=== PATIENT | female | born 1935 | race American Indian/Alaskan Native ===

== ENCOUNTER 2018-07-26 19:48 | Inpatient (IN) | payer MEDICARE ==
[2018-07-26 19:58] VITALS: BMI 32.9
--- NOTE | 2018-07-26 20:41 | ED PDOC ---
Arrival/HPI - General Chief Complaint: Palpitations Time Seen by Provider: 07/26/18 20:15 Historian: Patient - History of Present Illness Narrative History of Present Illness (Text): 07/26/18 20:15 82 year old female, whose past medical history includes hypertension, valvular heart disease, on Aspirin and Lasix, presents to the emergency department from home for complaints of reported palpitations, "feeling her heart racing fast", and feeling lightheaded that began 3 hours ago this evening. Patient reports she was hospitalized at another institution, but is unclear about the workup. Patient is a poor historian. She reports she took her aspirin today. Patient denies any pain or pressure on chest. Patient denies any fever, chills, chest pain, shortness of breath, nausea, vomiting, diarrhea, urinary symptoms, back pain, neck pain, headache, or any other complaints. 07/26/18 23:59 Time/Duration: Other (3 hours ago) Symptom Onset: Gradual Symptom Course: Unchanged Activities at Onset: Light Context: Home Past Medical History - Provider Review Nursing Documentation Reviewed: Yes - Cardiac Hx Hypertension: Yes - Pulmonary Hx Respiratory Disorders: No - Neurological Hx Neurological Disorder: No - HEENT Hx HEENT Disorder: No - Renal Hx Renal Disorder: No - Endocrine/Metabolic Hx Endocrine Disorders: No - Hematological/Oncological Hx Blood Disorders: No - Integumentary Hx Dermatological Disorder: No - Musculoskeletal/Rheumatological Hx Musculoskeletal Disorders: No - Gastrointestinal Hx Gastrointestinal Disorders: No - Genitourinary/Gynecological Hx Genitourinary Disorders: No - Psychiatric Hx Psychophysiologic Disorder: No Hx Substance Use: No - Surgical History Other/Comment: Uterine Polyp removal - Anesthesia Hx Anesthesia: No Family/Social History - Physician Review Nursing Documentation Reviewed: Yes Family/Social History: No Known Family HX Smoking Status: Never Smoked Hx Alcohol Use: No Hx Substance Use: No Allergies/Home Meds Allergies/Adverse Reactions: Allergies No Known Allergies Allergy (Verified 07/26/18 19:58) Review of Systems - Physician Review All systems were reviewed & negative as marked: Yes - Review of Systems Constitutional: absent: Fevers, Other (chills) Respiratory: absent: SOB Cardiovascular: Palpitations. absent: Chest Pain (or pressire) Gastrointestinal: absent: Diarrhea, Nausea, Vomiting Genitourinary Female: absent: Dysuria, Frequency, Hematuria Musculoskeletal: absent: Back Pain, Neck Pain Neurological: Other (lightheadedness). absent: Headache Physical Exam Vital Signs Reviewed: Yes Vital Signs Temp Pulse Resp BP Pulse Ox 07/26/18 20:04 97.7 F 90 18 140/72 97 07/26/18 19:48 97.7 F 90 17 140/72 97 Temperature: Afebrile Blood Pressure: Normal Pulse: Regular Respiratory Rate: Normal Appearance: Positive for: Well-Appearing, Non-Toxic, Comfortable Pain Distress: None Mental Status: Positive for: Alert and Oriented X 3 - Systems Exam Head: Present: Atraumatic, Normocephalic Pupils: Present: PERRL Extroacular Muscles: Present: EOMI Conjunctiva: Present: Normal Mouth: Present: Moist Mucous Membranes Neck: Present: Normal Range of Motion Respiratory/Chest: Present: Clear to Auscultation, Good Air Exchange. No: Respiratory Distress, Accessory Muscle Use Cardiovascular: Present: Regular Rate and Rhythm, Normal S1, S2. No: Murmurs Abdomen: No: Tenderness, Distention, Peritoneal Signs Back: Present: Normal Inspection Upper Extremity: Present: Normal Inspection. No: Cyanosis, Edema Lower Extremity: Present: Normal Inspection. No: Edema Neurological: Present: GCS=15, CN II-XII Intact, Speech Normal Skin: Present: Warm, Dry, Normal Color. No: Rashes Psychiatric: Present: Alert, Oriented x 3, Normal Insight, Normal Concentration Medical Decision Making ED Course and Treatment: 07/26/18 20:00 Impression: 82 year old female presents complaining of reported palpitations, "feeling her heart is racing fast", and lightheadedness/near syncope that began 3 hours ago this evening. neuro intact no capps in er. Plan: -- EKG -- Labs -- Chest X-ray -- Urinalysis -- Chest CT Angio -- Reassess and disposition Progress Notes: EKG shows Sinus Tachycardia at 111 BPM with PVCs. Interpreted by me. 07/26/18 22:19 CXR Impression: As read by me, negative. EXAM: CTA Chest with Intravenous Contrast Electronically signed on Jul 26, 2018 11:16:10 PM EST by: Domingo Rojo M.D. IMPRESSION: 1. No identification of PE. 2. Mild cardiomegaly. 3. Incidental discovery of several tiny choleliths within the gallbladder. 4. Multilevel degenerative disc disease within the lower thoracic and upper lumbar spine. 07/26/18 23:[address] Goff who is aware and agrees with the plan. Accepts patient into her service. 07/26/18 23:59 labs neg. cta neg.pt with symptoms < 6 hours onset with need serial trop. - Lab Interpretations I have reviewed the lab results: Yes - RAD Interpretation Radiology Orders: 07/26/18 20:23 CHEST PORTABLE [RAD] Stat Cardiac Cath Technologist: ED Physician - EKG Interpretation Interpreted by ED Physician: Yes Type: 12 lead EKG - Scribe Statement The provider has reviewed the documentation as recorded by the Faye Wilson Provider Scribe Attestation: All medical record entries made by the Faye were at my direction and personally dictated by me. I have reviewed the chart and agree that the record accurately reflects my personal performance of the history, physical exam, medical decision making, and the department course for this patient. I have also personally directed, reviewed, and agree with the discharge instructions and disposition. Disposition/Present on Arrival - Present on Arrival Any Indicators Present on Arrival: No History of DVT/PE: No History of Uncontrolled Diabetes: No Urinary Catheter: No History of Decub. Ulcer: No History Surgical Site Infection Following: None - Disposition Have Diagnosis and Disposition been Completed?: Yes Diagnosis: Near syncope, Palpitations Disposition: HOSPITALIZED Disposition Time: 22:00 Condition: STABLE
[2018-07-26 20:56] LABS: BASO # 0.03 K/mm3 (0.0-2.0); BASO % 0.5 % (0.0-3.0); EOS # 0.1 (0.0-0.7); EOS % 1.7 % (1.5-5.0); HEMOGLOBIN 13.7 g/dL (12.0-16.0); LYMPH # 2.5 (1.2-3.4); LYMPH % 41.1 % (22.0-35.0); MEAN CELL VOLUME 82.8 fl (80.0-105.0); MEAN CORPUSCULAR HEMOGLOBIN 27.5 pg (25.0-35.0); MEAN CORPUSCULAR HGB CONC 33.2 g/dl (31.0-37.0); MEAN PLATELET VOLUME 10.1 fl (7.0-11.0); MONO # 0.5 (0.1-0.6); MONO % 7.9 % (1.0-6.0); RBC 4.99 10^6/uL (3.5-6.1); RED CELL DISTRIBUTION WIDTH 14.9 % (11.5-14.5); WHITE BLOOD COUNT 6.1 10^3/uL (4.5-11.0)
[2018-07-26 21:04] LABS: INR 1.16; PARTIAL THROMBOPLASTIN TIME 32.7 Seconds (26.9-38.3); PROTHROMBIN TIME 12.9 SECONDS (9.4-12.5)
[2018-07-26 21:05] LABS: BLOOD UREA NITROGEN 27 mg/dL (7-21); CALCIUM 9.6 mg/dL (8.4-10.5); GFR NON-AFRICAN AMERICAN 48
[2018-07-26 21:05] LABS: PH,URINE 6.5 (4.7-8.0); URINE BILIRUBIN NEGATIVE (NEGATIVE); URINE BLOOD NEGATIVE (NEGATIVE); URINE GLUCOSE (UA) NEGATIVE (NEGATIVE); URINE LEUKOCYTE ESTERASE TRACE Leu/uL (NEGATIVE); URINE PROTEIN NEGATIVE mg/dL (<30 mg/dL); URINE UROBILINOGEN 0.2 E.U./dL (<1 E.U./dL)
[2018-07-26 21:10] LABS: ALB/GLOB RATIO 1.1 (1.1-1.8); ALBUMIN 4.2 g/dL (3.0-4.8); ALT/SGPT 14 U/L (7-56); AST/SGOT 32 U/L (14-36)
[2018-07-26 21:13] LABS: URINE APPEARANCE CLEAR (CLEAR); URINE COLOR YELLOW (YELLOW)
[2018-07-26 21:16] LABS: B-TYPE NATRIURETIC PEPTIDE 197 pg/mL (0-450)
[2018-07-26 21:21] LABS: TROPONIN I < 0.01 ng/mL
[2018-07-26] MEDS ORDERED: Iohexol 350 MG/100 ML VIAL ONE (21:27)
[2018-07-27 10:18] LABS: TROPONIN I < 0.01 ng/mL
--- NOTE | 2018-07-27 10:21 | RAD ---
Date of service: 07/26/2018 HISTORY: cp COMPARISON: In conjunction with this study was read in conjunction with CTA chest obtained 2 hr later FINDINGS: LUNGS: No active pulmonary disease. PLEURA: No significant pleural effusion identified, no pneumothorax apparent. CARDIOVASCULAR: Mild aortic atherosclerotic calcification present. Cardiomegaly. No pulmonary vascular congestion. OSSEOUS STRUCTURES: No significant abnormalities. VISUALIZED UPPER ABDOMEN: Suspect small hiatal hernia OTHER FINDINGS: None. IMPRESSION: Cardiomegaly. No acute cardiopulmonary disease.
--- NOTE | 2018-07-27 11:26 | CT ---
Date of service: 07/26/2018 PROCEDURE: CT Chest with contrast (Pulmonary Angiogram) HISTORY: Palpitations and SOB. COMPARISON: None available. TECHNIQUE: Axial computed tomography images were obtained of the chest in the pulmonary arterial phase of enhancement. Coronal and sagittal reformatted images were created and reviewed. Intravenous contrast dose: Radiation dose: Total exam DLP = 399.37 mGy-cm. This CT exam was performed using one or more of the following dose reduction techniques: Automated exposure control, adjustment of the mA and/or kV according to patient size, and/or use of iterative reconstruction technique. FINDINGS: PULMONARY ARTERIES: Visualized pulmonary trunk, right and left main, lobar, segmental and proximal subsegmental branches of the pulmonary arteries are well opacified with no definitive filling defects seen to suggest acute central pulmonary embolus. Pulmonary trunk measures approximately 3.25 cm.. Questionable small amount of air within the and anterior margin of the pulmonary trunk likely due to intravenous injection.. AORTA: No acute findings. No thoracic aortic aneurysm. Ascending thoracic aorta measures approximately 3.5 cm and descending thoracic aorta measures approximately 2.4 cm. Minor aortic atherosclerotic calcification or mural plaque present. LUNGS: Minor biapical pleural thickening with nodular parenchymal scarring right lung apex. Minimal linear scarring left lung apex. Underlying centrilobular emphysematous changes are present upper lobe predominance.. There is mild nodular scarring changes in the left lingular region which appears to be associated with some small 1 or 2 tiny calcifications PLEURAL SPACES: Unremarkable. No effusion or pneumothorax. HEART: Heart is enlarged. No significant pericardial effusion.. LYMPH NODES: No significant mediastinal or hilar lymphadenopathy.. Trachea midline and patent with no large central endoluminal lesions. Small to medium size hiatal hernia with slight wall thickening of the distal esophagus likely due to protrusion gastric mucosa.. BONES, CHEST WALL: Multilevel degenerative spondylosis predominately affecting the lower thoracic levels and upper lumbar levels. No acute compression fractures nor retropulsed fragments. OTHER FINDINGS: Note made of an approximately 11 mm low-attenuation adrenal lesion possibly representing an adenoma. Slightly nodular enlargement right adrenal gland noted as well. Colonic diverticula seen along the hepatic flexure region. Gallbladder is physiologically distended with intraluminal calculi. The pancreas appears atrophic and fatty replaced. IMPRESSION: No evidence of acute central pulmonary embolus. Cardiomegaly. Minor biapical pleural thickening with nodular parenchymal scarring right lung apex. Minimal linear scarring left lung apex. Underlying centrilobular emphysematous changes are present upper lobe predominance.. There is mild nodular scarring changes in the left lingular region which appears to be associated with some small 1 or 2 tiny calcifications Probable of left adrenal adenoma. Slight nodular enlargement right adrenal gland. Follow-up studies at interval could be performed to assess stability. Diverticulosis without radiographic evidence of acute diverticulitis. Cholelithiasis. Note that this report was placed in PA review folder for follow up
--- NOTE | 2018-07-27 20:15 | CARD ---
APPROVED REPORT Date of service: 07/26/2018 EKG Measurement Heart [id number] <Conclusion> Sinus tachycardia with premature supraventricular complexes with frequent and consecutive premature ventricular complexes in Possible Left atrial enlargement Left ventricular hypertrophy Abnormal ECG
--- NOTE | 2018-07-27 22:17 | CARD ---
APPROVED REPORT Date of service: 07/27/2018 EXAM: Two-dimensional and M-mode echocardiogram with Doppler and color Doppler. INDICATION PALPS 2D DIMENSIONS Left Atrium (2D)3.5 (1.6-4.0cm)IVSd0.9 (0.7-1.1cm) LVDd4.6 (3.9-5.9cm)PWd1.1 (0.7-1.1cm) LVDs3.7 (2.5-4.0cm)FS (%) 20.3 % LVEF (%)41.5 (>50%) M-Mode DIMENSIONS Aortic Root3.10 (2.2-3.7cm)Aortic Cusp Exc.2.10 (1.5-2.0cm) Aortic Valve AoV Peak Epivqejc965.0cm/Rboin Peak GR.7mmHg Mitral Valve MV E Syadcqnk02.9cm/sMV A Gwzlqvbp15.1cm/sE/A ratio0.7 TDI Lateral E' Peak V5.75cm/sMedial E' Peak V4.58cm/sE/Lateral E'7.6 E/Medial E'9.6 Tricuspid Valve TR Peak Enokmure304in/sRAP [id number] Peak Gr.32mmHg [id number] LEFT VENTRICLE The left ventricle is normal size. There is normal left ventricular wall thickness. The left ventricular function is normal. The left ventricular ejection fraction is within the normal range. There is normal LV segmental wall motion. RIGHT VENTRICLE The right ventricle is normal size. The right ventricular systolic function is normal. ATRIA The left atrium size is normal. The right atrium size is normal. The interatrial septum is intact with no evidence for an atrial septal defect. AORTIC VALVE The aortic valve is normal in structure. No aortic regurgitation is present. There is no aortic valvular stenosis. MITRAL VALVE The mitral valve is normal in structure. There is no mitral valve regurgitation noted. TRICUSPID VALVE The tricuspid valve is normal in structure. There is mild tricuspid regurgitation. PULMONIC VALVE The pulmonary valve is normal in structure. GREAT VESSELS The aortic root is normal in size. The IVC is normal in size and collapses >50% with inspiration. PERICARDIAL EFFUSION There is no pleural effusion. There is no pericardial effusion. <Conclusion> Normal study.
[2018-07-28] MEDS: POLYETHYLENE GLYCOL 3350 17 GM/Dose PACKET PO SCH ×2 (13:13→18:49)
--- NOTE | 2018-07-28 15:23 | PN ---
DATE: 07/28/2018 SUBJECTIVE: This 82-year-old female was examined at her bedside on the cardiac cisneros at the [facility] on the morning on 07/28/2018. The patient did complete a cardiac echocardiogram yesterday which I reviewed with the patient. The left ventricle was noted to be normal in size with normal wall thickness and normal wall function. Her ejection fraction was within normal range and there was normal left ventricular segmental wall motion. The right ventricle also was normal in size and her ventricular systolic function was noted to be normal. Left atrium size was normal. Her left atrial septum was intact. There was no evidence of an atrial septal defect. Her aortic valve was normal in structure. No aortic valvular stenosis was noted. The mitral valve was normal in structure. There was no mitral valve regurgitation noted. Tricuspid valve was normal. There was mild tricuspid regurgitation, and her pulmonary valve within normal limits. There was no evidence of pleural effusion nor pericardial effusion and the conclusion was a normal study. I did review the patient's vital signs throughout her hospital course, there have been no reports of tachycardia and the patient denies any active chest pain. PHYSICAL EXAMINATION: VITAL SIGNS: At the present time, her temperature is 98.4, respirations 20, pulse 78, blood pressure 126/72 with a pulse ox of 97% on room air. HEENT: Head normocephalic, atraumatic. Eyes: No icterus. Ears: Clear. Throat: Noninjected. NECK: Supple. HEART: S1, S2. LUNGS: Clear. ABDOMEN: Soft. EXTREMITIES: No edema. SKIN: Without rash. NEUROLOGIC: Intact. PSYCHOLOGIC: Alert. VASCULAR: Legs warm to touch. IMPRESSION: An 82-year-old female admitted with palpitations, tachycardia, history of obesity, hypertension. PLAN: The plan is to continue aspirin, Lasix and Zestril. I will add metoprolol tartrate 12.5 mg p.o. b.i.d. and lower her Zestril to 2.5 mg p.o. daily while watching her blood pressure and pulse rate response. I have discussed with the patient considering doing a Lexiscan stress test in the a.m., and based on her response, additional diagnostic workup and testing will be entertained. Greater than 35 minutes was spent in the care management, review of labs, orders and x-rays and discussion of this patient with herself and nursing. All questions were answered. Allie Santiago MD
--- NOTE | 2018-07-28 15:34 | HP ---
DATE OF EXAM: 07/27/2018 HISTORY OF PRESENT ILLNESS: This 82-year-old female was examined on the cardiac cisneros at the [facility] on the afternoon of Sunday, July 27, 2018. Present for this interview were family members including her sister, niece, nephew and case was reviewed in detail with her nurse, Michelle Olivier, registered nurse. 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 She presented to the [facility] ER last night and was seen by Dr. Dann Arredondo, who noted that the patient complained of palpitations. She felt as if her heart was racing to fast "lightheadedness" and the patient was admitted for further evaluation of the above. OUTPATIENT MEDICATIONS: Include, At[place]and, Lasix and baby aspirin. ALLERGIES: THE PATIENT DENIED ANY ALLERGIES TO MEDICATION. SOCIAL HISTORY: She states she is a nondrinker, nonsmoker and non IV drug misuser. FAMILY HISTORY: Noncontributory. REVIEW OF SYSTEMS: CONSTITUTIONAL: No fever, no chills. HEAD: No headache or seizure. EYE: No change in visual acuity. EAR: No hearing loss. THROAT: No swallowing difficulty. NECK: No stiffness. CARDIAC: No knowledge of valvular heart disease or myocardial infarction in her past. PULMONARY: No cough. No hemoptysis. GI: No hematemesis. No melena. : No dysuria. SKIN: No rash. VASCULAR: No claudication. PSYCHOLOGICAL: Alert and oriented x3. PHYSICAL EXAMINATION VITAL SIGNS: She was in normal sinus rhythm on hospital monitor with a temperature of 98.6, respirations 18, pulse 56 and blood pressure 138/62. Pulse ox 97% room air. HEENT: Head normocephalic and atraumatic. Eyes no icterus. Ears clear. Throat noninjected. NECK: Supple. HEART: Regular S1 and S2. No pathological rubs, murmurs or gallops. LUNGS: Clear. ABDOMEN: Soft. EXTREMITIES: No edema. SKIN: Without rash. NEUROLOGICAL: Intact. PSYCHOLOGICAL: Alert and oriented x3. VASCULAR: Legs warm to touch. BMI 33.4. LABORATORY DATA: White count 6100, hemoglobin 13.7, hematocrit 41.3, and platelets 232,000. PT/INR 1.16 and PTT 32.7. Sodium 136, K 4.1, chloride 101, bicarb 26, BUN 27, creatinine 1.1, random blood sugar 91, calcium 9.6, magnesium 1.8, bilirubin 0.6, AST 32, ALT 14 and alk phos 78. CPK #1 is 78 with a troponin less than 0.01. CPK #2 is 60 with a troponin less than 0.01. Urinalysis showed no bacteria. Chest x-ray was reviewed. It showed no active pulmonary disease. There was no pneumothorax, no pleural effusion, no infiltrate, no congestive heart failure. EKG was reviewed. It showed sinus tachycardia with PACs and nonspecific ST-T wave changes. Chest CT was reviewed. It showed cardiomegaly, no pericardial effusion, no mediastinal or hilar lymphadenopathy. She does have a hiatal hernia, gallstones and fatty pancreas. No evidence of pulmonary embolism. A probable left adrenal adenoma diverticulosis and no evidence of pulmonary consolidation. IMPRESSION: This is an 82-year-old female admitted with chest pain, palpitation, rule out cardiac arrhythmia, comorbidities of hypertension, obesity and adrenal adenoma. PLAN: As discussed with the patient and her family at bedside will be to order an echocardiogram. She will be continued on baby aspirin, Lasix and Zestril. She is ordered to have a heart-healthy diet. Based on clinical progress, additional diagnostic workup will be entertained. Greater than 75 minutes was spent in the care management, review of labs, orders and x-rays and discussion of this patient with herself, her family at the bedside and nurse Soy, registered nurse. All questions were answered. Allie Santiago MD
[2018-07-28] MEDS ORDERED: POLYETHYLENE GLYCOL 3350 17 GM/Dose PACKET PO PRN (18:50)
[2018-07-29] MEDS ORDERED: Aminophylline 25 mg/ml Inj ONE (09:40)
--- NOTE | 2018-07-29 20:12 | CARD ---
APPROVED REPORT Date of service: 07/29/2018 Protocol: LEXISCAN Test Type: Lexiscan Sestamibi Stress Test Attending Physician: Dr. Gallo Martinez Referring Physician: Dr. Allie Santiago Test Indications: Chest Pain Height:5 ft 2 in Weight:182lbs Medications: ASpirin, Lasix, Zestril, Lopressor Miralaz, Medical History: 82 year old female with a history of HTN, Valvular disease Target HR: 139 bpm Resting ECG: abnormal Resting Heart Rate: 56 bpm Resting Blood Pressure: 120/68mmHg Submaximum (85%): 118 bpm PROCEDURE Pharmacologic stress testing was performed using 0.4mg per 5ml of regadenoson given intravenously over 7-10 seconds. POST EXERCISE Reason for Termination: Protocol completed Target HR: No Max HR: 88 bpm 71% of Maximum Predicted HR: 139 bpm Exercise duration: 04:32 min:sec, 0 Stage Exercise capacity: 1.0METs Max Blood Pressure: 122/60mmHg Blood Pressure response to exercise: normal resting BP - appropriate response Heart Rate response to exercise: appropriate Chest Pain: No, none Angina index: 0 Arrhythmia: Yes, atrial premature beats ST Change: No, none Deviation: 0 mm TEST SUMMARY [id number]/68.0. INFUSIONDOSE 101:[id number]/.0. INFUSIONDOSE 201:000.00.01.093/.0. INFUSIONDOSE 301:[id number]/60.0. INFUSIONDOSE 401:[id number]/60.0. INFUSIONDOSE 500:320.00.01.088/.1. INTERPRETATION Stress EKG Conclusion: Normal infusion phase of Lexiscan NST. Signed by Gallo Martinez Electronically Approved: 07/29/2018 13:29:46 EXAM: Myocardial Perfusion REST/STRESS Stress Test Type: Pharmacologic Imaging Protocol The imaging protocol used to acquire images was Rest Tc-99m/stress Tc-99m 1 day Rest Spect myocardial perfusion imaging was performed in supine position 30 minutes following the injection of 10.4 mCi of Tc-99 Myoview. At peak stress, the patient was injected intravenously with 30.6mCi of Tc-99 tetrofosmin after an infusion time of minutes and seconds. Gated Stress Spect was performed 60 minutes after intravenous Tc-99 Myoview injection. The images were gated to evaluate regional wall motion and calculate ventricular ejection fraction.Images were reconstructed using backfilter projection method in short horizontal and verticle long axis. Spect slices were generated. LV Perfusion The quality of the study is good. The left ventricle is normal in size. The right ventricle is unremarkable. The lung uptake is normal. The distribution of tracer reveals moderately decreased perfusion involving apical and basal lateral nagy on the stress study. The remainder of the LV myocardium is unremarkable. The rest myocardial perfusion study shows partial improvement of the defects. Wall Motion Wall motion study shows inferolateral hypokinesis and paradoxical septal wall motion. LVEF = 48 %. Conclusion 1. Abnormal SPECT myocardial perfusion study. 2. Reversible, apical defect and artially reverislble, basal lateral defects are suggesive of ischemia. 3. Borderline normal LV function despite inferolateral hypokinesis and paradoxical septal wall motion. .
--- NOTE | 2018-07-29 21:53 | PN ---
DATE: 07/29/2018 SUBJECTIVE: This 82-year-old female remains hospitalized on the morning of 07/29/2018. She was admitted with palpitations, history of hypertension, obesity and degenerative arthritis. At present, her medications have been adjusted to low-dose Zestril, low-dose Lopressor, oral Lasix and p.o. baby aspirin. She has been given MiraLax for complaints of obstipation and is in the process of obtaining a Lexiscan stress test this morning. She remains in a normal sinus rhythm on the awake overnight monitor and denies any fever, chills or palpitations. PHYSICAL EXAMINATION: VITAL SIGNS: Her temperature was 98.4, respirations 20, pulse 84 and blood pressure 120/68. HEENT: Head: Normocephalic, atraumatic. Eyes: No icterus. Ears: Clear. Throat: Noninjected. NECK: Supple. HEART: Regular. S1, S2. No pathological rubs, murmurs or gallops. LUNGS: Clear. ABDOMEN: Obese. EXTREMITIES: No edema. SKIN: Without rash. NEUROLOGICAL: Intact. PSYCHOLOGICAL: Alert. VASCULAR: Legs warm to touch. LABORATORY DATA: White count 6100, hemoglobin 13.7, hematocrit 41.3, platelets 232,000. Sodium 136, K 4.1, chloride 101, bicarb 26, BUN 27, creatinine 1.1. All liver function testing was normal. Troponin was less than 0.01 x2. Urinalysis showed no bacteria. Urine culture showed no growth. IMPRESSION: An 82-year-old female admitted with chronic hypertension, palpitation. Echocardiogram was reviewed. No significant valvular pathology and the patient is being scheduled for a Lexiscan stress test today. Blood pressure medications are being adjusted. She is being introduced to Lopressor and as discussed with her nurse, Shy Kline, registered nurse, we will continue Lopressor 12.5 mg by mouth 2 times a day, holding for any pulse less than 50, systolic blood pressure less than 100, and this was explained to the patient in detail as well. Greater than 35 minutes was spent in the care management, review of labs, orders and x-rays, and discussion of this patient with herself and nursing. All questions were answered Allie Santiago MD [facility] # [id number]
--- NOTE | 2018-07-30 21:52 | PN ---
DATE: 07/30/2018 SUBJECTIVE: This 82-year-old female was examined on the cardiac cisneros at the [facility] on the morning of 07/30/2018. Her nurse, Mary Jaquez, was present for the interview. I did review her myocardial stress test which was completed yesterday. This was also reviewed with the patient and nursing. It showed an abnormal myocardial SPECT, myocardial perfusion study with reversible apical defects and partially reversible basal lateral defects suggestive of ischemia. The patient continues to manifest borderline normal left ventricular function despite inferior lateral hypokinesia and a paradoxical septal wall motion. As a result of this abnormal myocardial stress test, a consultation with Dr. Gallo Martinez has been requested and discussion of possible cardiac cath was had with the patient this morning. At present, she denies any fever, chills, chest pain or shortness of breath. She denied any palpitations in the past 12 hours. She is in a normal sinus rhythm on the cardiac catheterization technologist. PHYSICAL EXAMINATION: VITAL SIGNS: Temperature is 97.8, respirations 18, pulse 62 and blood pressure 109/70. Pulse oximetry is 98% on room air. HEENT: Head: Normocephalic, atraumatic. Eyes: No icterus. Ears: Clear. Throat: Noninjected. NECK: Supple. HEART: Regular. S1 and S2. No pathological rubs, murmurs or gallops. LUNGS: Clear. ABDOMEN: Soft. EXTREMITIES: No edema. SKIN: Without rash. NEUROLOGICAL: Intact. PSYCHOLOGICAL: Alert and oriented x3. VASCULAR: Legs warm to touch. LABORATORY DATA: White count 6100, hemoglobin 13.7, hematocrit 41.3, platelets 232,000. PT/INR 1.16, PTT 32.7. Sodium 136, K 4.1, chloride 101, bicarb 26. BUN 27, creatinine 1.1, random blood sugar 91. Magnesium 1.8, calcium 9.6. Bilirubin 0.6, AST 32, ALT 14, alkaline phosphatase 78. Troponin was less than 0.01 x2. Urine culture showed no growth. IMPRESSION: An 82-year-old female admitted with palpitations, history of obesity, hypertension and found to have an adrenal adenoma, now with an abnormal myocardial stress test suggestive of ischemia. PLAN: As discussed with the patient and nurse Leonid, the patient will continue on Ecotrin 81 mg p.o. daily, Lasix 40 mg p.o. daily, Lopressor 12.5 mg p.o. b.i.d., holding for any pulse less than 50 or systolic blood pressure less than 100. She continues on Zestril 2.5 mg p.o. daily, MiraLax 17 g p.o. b.i.d. She is ordered to have a heart-healthy diet and will await consultation with Dr. Martinez regarding possible cardiac catheterization. Greater than 35 minutes was spent in the care management, review of labs, orders, x-rays, discussion of this patient's echocardiogram and cardiac cath with her at bedside and nursing. All questions were answered. Allie Santiago MD MTDD
[2018-07-31] MEDS ORDERED: Lidocaine 2% Inj (20ml) ONE (09:49)
[2018-07-31] MEDS ORDERED: Phenylephrine 10 mg/ml Inj ONE (09:50)
[2018-07-31] MEDS ORDERED: Iohexol 350mgl/ml 50 ML ONE (09:50)
[2018-07-31] MEDS ORDERED: Iodixanol 320 MG/ML 200 ML BOTTLE IV ONE (09:50)
[2018-07-31] MEDS ORDERED: Iodixanol 320 MG/ML 100 ML BOTTLE IV ONE (09:50)
[2018-07-31] MEDS ORDERED: Midazolam 2 MG/2 ML VIAL ONE (10:12)
--- NOTE | 2018-07-31 10:53 | CON ---
DATE: 07/31/2018 REQUESTING PHYSICIAN: Dr. Santiago. REASON FOR CONSULTATION: Abnormal stress test. HISTORY: This is an 82-year-old woman with a history of hypertension who was admitted for complaints of palpitations and lightheadedness. As part of her workup, nuclear stress test was advised. This showed evidence of a reversible apical defect as well as a partially reversible basolateral defect suggestive of ischemia. Ejection fraction was 48% with evidence of inferolateral hypokinesis. Her cardiac enzymes are negative. Cardiac evaluation was requested. She denies any recent chest pain or dyspnea. She states she underwent cardiac catheterization twice in the past, last episode being 10 years ago. She was told she had no significant coronary artery disease at that time. MEDICATIONS AT HOME: Include aspirin, Lasix and Atacand. ALLERGIES: NONE. PAST MEDICAL HISTORY: Otherwise unremarkable. FAMILY HISTORY: Both parents from age-related illness. SOCIAL HISTORY: Does not smoke or drink. She was a retired orthopedic nurse. REVIEW OF SYSTEMS: A 10-point review of systems is otherwise unremarkable. PHYSICAL EXAMINATION: GENERAL: She is a fairly healthy-appearing elderly woman. VITAL SIGNS: Blood pressure is 156/70 with pulse of 68, respirations are 16. She is afebrile. HEENT: Normocephalic, atraumatic. NECK: Supple. No JVD noted. CHEST: Few scattered rhonchi heard. HEART: PMI in normal position. No pathologic murmurs or gallops noted. ABDOMEN: Soft and nontender with normoactive bowel sounds. EXTREMITIES: No clubbing, cyanosis, or edema. SKIN: Warm and dry. PSYCHIATRIC: Normal mood and affect. NEUROLOGICAL: Alert and oriented x3. No gross motor or sensory deficits noted. DIAGNOSTIC DATA: White count 6.1, hemoglobin and hematocrit 13.7 and 41.3 with platelet count of 232,000. Potassium 4.1. BUN and creatinine 27 and 1.1. Two sets cardiac enzymes were negative. BNP is 197. PT/PTT 12.9 and 32.7. IMPRESSION: 1. Abnormal stress test suggestive of coronary artery disease, only symptoms at the present time appeared to be palpitations which are nonspecific. 2. History of hypertension with suboptimal control. 3. Rest as noted. RECOMMENDATIONS: Given her abnormal stress test, further evaluation will be reasonable. The option of empiric antianginal therapy versus cardiac catheterization was discussed with her. She is agreeable to proceed with catheterization at this time as well. She has been explained the risks and benefits and is agreeable to proceed. Further recommendations were made based upon those findings. Intensification of her antihypertensive therapy is advised as well. Thank you for this consultation. We will be happy to follow along as needed. Gallo Martinez MD
[2018-07-31] MEDS ORDERED: Sodium Chloride 0.9% 1,000 ML IV SCH (11:00)
--- NOTE | 2018-07-31 14:50 | CARDCATH ---
PROCEDURE DATE: 07/31/2018 PROCEDURES: 1. Selective left and right coronary angiography. 2. Left ventriculography. 3. Right femoral arteriography. 4. Angio-Seal deployment. HISTORY: This is an 82-year-old woman admitted with palpitations and dyspnea. A stress test was performed, showing evidence of possible inferolateral and apical ischemia. Cardiac catheterization was advised. INDICATIONS: As above. FINDINGS: 1. The left main stem was normal. 2. Left anterior descending artery and its branches were normal as well. 3. The left circumflex artery and its branches were normal. 4. The right coronary artery was done, and it had mild diffuse irregularities. LEFT VENTRICULOGRAPHY: A left ventriculogram was performed in the HAYS projection and hand injection only. This revealed normal wall motion with ejection fraction of 55%. There was no aortic valve gradient noted on catheter pullback. RIGHT FEMORAL ARTERIOGRAPHY: The right femoral arteriogram was performed in the HAYS projection. This revealed no evidence of significant disease and appropriate level of arterial puncture. The puncture site was then closed with deployment of an Angio-Seal device. CONCLUSION: 1. No significant obstructive coronary artery disease. 2. Normal left ventricular systolic function. RECOMMENDATION: Given the above findings, continued control of hypertension and risk factor control is advised. Gallo Martinez MD cc: Allie Santiago MD MTDD
--- NOTE | 2018-07-31 14:59 | PN ---
DATE: 07/31/2018 SUBJECTIVE: This 82-year-old female is awaiting cardiac cath under the direction of Dr. Gallo Martinez from Cardiology. She presented with palpitations, had an echocardiogram that was unremarkable, and a myocardial stress test that upon review was significant for reversible ischemia involving her apical and lateral heart wall sections. At present, the patient remains chest pain free. PHYSICAL EXAMINATION: VITAL SIGNS: Normal sinus rhythm on case monitor with temperature of 97.8, respirations 18, pulse 68 and blood pressure 157/72 and pulse ox 98% room air. HEENT: Head: Normocephalic, atraumatic. Eyes: No icterus. Ears: Clear. Throat: Noninjected. NECK: Supple. HEART: Regular S1, S2. LUNGS: Clear. ABDOMEN: Soft. EXTREMITIES: No edema. SKIN: Without rash. NEUROLOGICAL: Intact. PSYCHOLOGICAL: Alert. VASCULAR: Legs warm to touch. LABORATORY DATA: White count 6100, hemoglobin 13.7, hematocrit 41.3, platelets 232,000. PT/INR 1.16, PTT 32.7. Sodium 136, K 4.1, chloride 101, bicarb 26, BUN 27, creatinine 1.1, random blood sugar 91, calcium 9.6. Magnesium 1.8. Bilirubin 0.6, AST 32, ALT 14, alk phos 78. IMPRESSION: An 82-year-old female with chronic hypertension, obesity, palpitations and abnormal myocardial stress test, now in preparation of cardiac cath. PLAN: The patient will continue on Ecotrin, Lasix, Lopressor, 0.9 saline and Zestril. Based on the results of cardiac cath and recommendations by Dr. Gallo Martinez from Cardiology, additional diagnostic workup and testing will be entertained. All of the above was reviewed with the patient and nurse, Bella Xavier. All questions were answered. Allie Santiago MD
[2018-08-01 06:18] VITALS: O2SAT 98
[2018-08-01 12:07] VITALS: BP 164/67; RESP 20; TEMP 98.2
[2018-08-01 17:51] VITALS: PULSE 63
--- NOTE | 2018-08-02 23:47 | DS ---
HISTORY OF PRESENT ILLNESS: This 82-year-old female was examined on the cardiac cisneros on the morning of her discharge, , 08/01/2018. She is being discharged after a complaint of palpitations with chronic hypertension, obesity and an unremarkable 2D echo and cardiac cath. Professor Of Kinesiology was Dr. Gallo Martinez from Cardiology. She is discharged to home on a 2-g sodium, heart-healthy diet. MEDICATIONS: Including Lasix 40 mg p.o. daily, Atacand 8 mg p.o. daily, Ecotrin 81 mg p.o. daily, and Lopressor 12.5 mg p.o. b.i.d. HOSPITAL COURSE: The patient was admitted with a complaint of palpitations and underwent diagnostic workup including chest x-ray, which was unremarkable. Chest CT which showed a benign adrenal adenoma and echocardiogram that showed no significant pathology and a myocardial stress test that was significant for ischemic changes in her inferior apical wall motions. She underwent a cardiac cath under the direction of Dr. Gallo Martinez that was unremarkable for any significant cardiac disease and was discharged to home on the above instructions. PHYSICAL EXAMINATION: VITAL SIGNS: At the time of her discharge, her temperature was 98.2, respirations 20, pulse 63, and blood pressure 146/74. LABORATORY DATA: Her labs showed white count 6100, hemoglobin 13.7, hematocrit 41.3, and platelets 232,000. PT/INR 1.16. PTT 32.7. Sodium 136, K 4.1, chloride 101, bicarb 26, BUN 27, and creatinine 1.1. Random blood sugar 91. Calcium 9.6. Magnesium 1.8. Bilirubin 0.6, AST 32, ALT 14, and alk phos 78. CPK 78. BNP 197. Her urinalysis was unremarkable. There was no protein. No blood. Of note, chest CT was reviewed with the patient and did show minor pleural thickening with scarring at the right lung apex with emphysematous changes in her upper lobe noted. There was a probable left adrenal adenoma noted for which the patient was advised to get a 6-month CT followup. Diverticulosis was noted with no evidence of diverticulitis and asymptomatic gallstones were noted as well. The patient did express to me at the time of discharge that she thought she had an episode of vaginal spotting. I gave her a prescription and an evaluation with Dr. Loyola, the veneer stock layer, and advised her to call her office within the next 24 hours for outpatient followup which the patient said she would be compliant with. I gave her a followup visit for my office in 2 weeks and hopefully she will be compliant with that as well. She is aware that she will need outpatient endoscopy, colonoscopy and further management of adrenal adenoma based on radiographic findings of this in the near future. Hopefully, she will be compliant with these recommendations. Greater than 35 minutes was spent in her discharge management, instructions, outlining of orders, medication and appointments. All questions were answered. Allie Santiago MD
== END 2018-08-01 19:08 | disposition home or self-care (01) | DRG 287 ==
LOC: ED 19:48 → ERH 23:19 → MERGE 23:19 → ERH 23:53 → 2RNO 07-27 01:18 → 2RSO 07-31 11:07
PROVIDERS: ADMIT Internal Medicine; ATTEND Internal Medicine
PROC: 4A023N7 Measurement of Cardiac Sampling and Pressure, Left Heart, Percutaneous Approach (ICD-10-PCS; principal; 2018-07-31)
PROC: B211YZZ Fluoroscopy of Multiple Coronary Arteries using Other Contrast (ICD-10-PCS; 2018-07-31)
PROC: B215YZZ Fluoroscopy of Left Heart using Other Contrast (ICD-10-PCS; 2018-07-31)
DX: R00.2 Palpitations (principal); I10 Essential (primary) hypertension; R00.0 Tachycardia, unspecified; M51.36 Other intervertebral disc degeneration, lumbar region; M51.34 Other intervertebral disc degeneration, thoracic region; E66.9 Obesity, unspecified; Z68.33 Body mass index [BMI] 33.0-33.9, adult; K59.00 Constipation, unspecified; D35.02 Benign neoplasm of left adrenal gland; R94.39 Abnormal result of other cardiovascular function study